=== PATIENT | female | born 1935 | race Caucasian/White ===

== ENCOUNTER 2017-11-22 21:25 | Inpatient (IN) | payer MEDICAID, OTHER ==
[2017-11-22 23:16] LABS: ADD MAN DIFF? NO; HAAIG REFLEX REFLEX FILED
[2017-11-22 23:19] LABS: BASOPHIL # 0.1 10^3/ul (0.0-0.1); BASOPHILS % 0.6 % (0.0-2.0); EOSINOPHILS # 0.2 10^3/ul (0.0-0.5); EOSINOPHILS % 2.3 % (0.0-7.0); HEMATOCRIT 39.3 % (37.0-47.0); HEMOGLOBIN 13.5 g/dl (12.0-16.0); LYMPHOCYTES # 1.2 10^3/ul (0.8-2.9); LYMPHOCYTES % 14.8 % (15.0-51.0); MEAN CORPUSCULAR HGB CONC 34.4 g/dl (32.0-37.0); MEAN CORPUSCULAR VOLUME 90.1 fl (82.0-101.0); MEAN PLATELET VOLUME 10.9 fl (7.4-10.4); MONOCYTE # 0.7 10^3/ul (0.3-0.9); MONOCYTES % 8.2 % (0.0-11.0); NEUTROPHIL # 6.2 10^3/ul (1.6-7.5); NEUTROPHILS % 73.4 % (39.0-77.0); PLATELET COUNT 209 10^3/UL (140-415); RED BLOOD COUNT 4.36 10^6/ul (4.20-5.40); RED CELL DISTRIBUTION WIDTH 18.6 % (11.5-14.5)
[2017-11-22 23:19] LABS: WHITE BLOOD COUNT 8.4 10^3/ul (4.8-10.8)
[2017-11-22 23:39] LABS: INR 1.28; PROTIME 16.2 Sec (11.9-14.9); PT RATIO 1.3
[2017-11-22 23:40] LABS: PARTIAL THROMBOPLASTIN TIME 44.4 Sec (25.0-35.0)
[2017-11-23 00:13] LABS: ADD UMIC YES; UR ASCORBIC ACID 20 mg/dL (NEGATIVE); UR BACTERIA FEW /HPF (NONE SEEN); UR BILIRUBIN (Dip) 2+ mg/dL (NEGATIVE); UR BLOOD (Dip) NEGATIVE (NEGATIVE); UR CLARITY SLIGHTLY CLOUDY (CLEAR); UR COLOR AMBER (YELLOW); UR GLUCOSE (Dip) 1+ mg/dL (NEGATIVE); UR KETONES (Dip) NEGATIVE (NEGATIVE); UR LEUKOCYTE ESTERASE (Dip) 1+ Leu/ul (NEGATIVE); UR MUCUS FEW /HPF (NONE SEEN); UR NITRITE (Dip) NEGATIVE (NEGATIVE); UR RBC 2 /HPF (0-5); UR SPECIFIC GRAVITY (Dip) 1.018 (1.003-1.030); UR SQUAMOUS EPITHELIAL CELL MODERATE /HPF (FEW); UR TOTAL PROTEIN (Dip) NEGATIVE (NEGATIVE); UR TRANSITIONAL EPI CELL FEW /HPF (NONE SEEN); UR UROBILINOGEN (Dip) 2+ mg/dL (NEGATIVE); UR WBC 29 /HPF (0-5)
[2017-11-23 00:41] LABS: AMPHETAMINE/METHAMPHETAMINE NEGATIVE (NEGATIVE); BARBITURATES NEGATIVE (NEGATIVE); BENZODIAZEPINES NEGATIVE (NEGATIVE); CANNABINOIDS NEGATIVE (NEGATIVE); COCAINE NEGATIVE (NEGATIVE); OPIATES NEGATIVE (NEGATIVE)
[2017-11-23 00:46] LABS: ALANINE AMINOTRANSFERASE 50 IU/L (13-69); ALBUMIN 3.1 g/dl (3.3-4.9); ALBUMIN/GLOBULIN RATIO 0.65; ALKALINE PHOSPHATASE 336 IU/L (42-121); ANION GAP 14 (8-16); ASPARTATE AMINO TRANSFERASE 122 IU/L (15-46); BILIRUBIN,INDIRECT 3.3 mg/dl (0-1.1); BLOOD UREA NITROGEN 15 mg/dl (7-20); CALCIUM 9.3 mg/dl (8.4-10.2); CARBON DIOXIDE 21 mmol/L (21-31); CHLORIDE 108 mmol/L (97-110); CREATININE 0.55 mg/dl (0.44-1.00); GLUCOSE 156 mg/dl (70-220); LIPASE 141 U/L (23-300); POTASSIUM 4.3 mmol/L (3.5-5.1); SODIUM 139 mmol/L (135-144); TOTAL PROTEIN 7.8 g/dl (6.1-8.1)
[2017-11-23 00:54] LABS: ETHANOL < 10.0 mg/dl
[2017-11-23 00:57] LABS: ACETAMINOPHEN < 10.0 ug/ml (10.0-30.0)
[2017-11-23 00:57] LABS: BILIRUBIN,TOTAL 21.9 mg/dl (0.2-1.3)
[2017-11-23 01:19] LABS: HEPATITIS B SURFACE ANTIGEN NEGATIVE (NEGATIVE)
[2017-11-23 01:36] LABS: HEPATITIS B CORE ANTIBODY REACTIVE (NEGATIVE); HEPATITIS C VIRAL ANTIBODY NEGATIVE (NEGATIVE)
[2017-11-23] MEDS ORDERED: NACL 0.9% 3 ML SYG IV (03:00)
[2017-11-23] MEDS ORDERED: ACETAMINOPHEN 325 MG TAB PO (03:00)
[2017-11-23] MEDS: CEFTRIAXONE 1 GM/50 ML (PMX) 50 ML IVPB (04:00)
[2017-11-23] MEDS: SOD CHLORIDE 0.9% 1,000 ML IV ×2 (04:00→22:54)
[2017-11-23 05:49] LABS: HAAIG REFLEX REFLEX FILED
[2017-11-23 05:53] LABS: RETICULOCYTE COUNT # 0.127 X10^6 (0.020-0.110); RETICULOCYTE COUNT % 3.3 % (0.5-1.5)
[2017-11-23 05:53] LABS: RETICULOCYTE RBC 3.81
[2017-11-23 06:21] LABS: AMMONIA 55 umol/l (9-30)
[2017-11-23 06:25] LABS: IRON 160 ug/dl (35-150)
[2017-11-23 06:29] LABS: MAGNESIUM 1.9 mg/dl (1.7-2.5)
[2017-11-23 06:35] LABS: % IRON SATURATION 59 % SAT (22-52); TOTAL IRON BINDING CAPACITY 271 ug/dl (241-421)
[2017-11-23 06:56] LABS: THYROID STIMULATING HORMONE 0.158 MIU/L (0.465-4.680)
[2017-11-23 06:57] LABS: HEPATITIS B SURFACE ANTIGEN NEGATIVE (NEGATIVE)
[2017-11-23 06:59] LABS: HEPATITIS B SURFACE ANTIGEN NEGATIVE (NEGATIVE)
[2017-11-23 07:06] LABS: ALPHA FETOPROTEIN 2.72 IU/L (0.00-7.21)
[2017-11-23 07:08] LABS: HIV 1&2 ANTIBODY NEGATIVE (NEGATIVE)
[2017-11-23 07:15] LABS: HEPATITIS B CORE ANTIBODY REACTIVE (NEGATIVE); HEPATITIS C VIRAL ANTIBODY NEGATIVE (NEGATIVE)
[2017-11-23 07:30] LABS: HEMOGLOBIN A1C 5.1 % (0-5.9)
[2017-11-23 07:48] LABS: HEPATITIS C VIRAL ANTIBODY NEGATIVE (NEGATIVE)
[2017-11-23 07:57] LABS: LACTATE DEHYDROGENASE 583 IU/L (313-618)
[2017-11-23 17:18] LABS: HEPATITIS B SURFACE ANTIBODY NEGATIVE (NEGATIVE)
[2017-11-24] MEDS: CEFTRIAXONE 1 GM/50 ML (PMX) 50 ML IVPB (02:42)
[2017-11-24 05:15] LABS: ADD MAN DIFF? NO
[2017-11-24 05:20] LABS: WHITE BLOOD COUNT 8.2 10^3/ul (4.8-10.8)
[2017-11-24 05:20] LABS: BASOPHILS % 0.2 % (0.0-2.0); EOSINOPHILS % 0.5 % (0.0-7.0); HEMATOCRIT 32.2 % (37.0-47.0); HEMOGLOBIN 11.5 g/dl (12.0-16.0); LYMPHOCYTES # 1.2 10^3/ul (0.8-2.9); LYMPHOCYTES % 14.8 % (15.0-51.0); MEAN CORPUSCULAR HEMOGLOBIN 31.5 pg (29.0-33.0); MEAN CORPUSCULAR HGB CONC 35.7 g/dl (32.0-37.0); MEAN CORPUSCULAR VOLUME 88.2 fl (82.0-101.0); MEAN PLATELET VOLUME 10.7 fl (7.4-10.4); MONOCYTE # 0.7 10^3/ul (0.3-0.9); MONOCYTES % 8.9 % (0.0-11.0); NEUTROPHIL # 6.2 10^3/ul (1.6-7.5); NEUTROPHILS % 75.1 % (39.0-77.0); PLATELET COUNT 217 10^3/UL (140-415); RED BLOOD COUNT 3.65 10^6/ul (4.20-5.40); RED CELL DISTRIBUTION WIDTH 18.7 % (11.5-14.5)
[2017-11-24 05:52] LABS: ALANINE AMINOTRANSFERASE 43 IU/L (13-69); ALBUMIN 2.6 g/dl (3.3-4.9); ALBUMIN/GLOBULIN RATIO 0.61; ALKALINE PHOSPHATASE 271 IU/L (42-121); ANION GAP 15 (8-16); ASPARTATE AMINO TRANSFERASE 116 IU/L (15-46); BILIRUBIN,INDIRECT 2.3 mg/dl (0-1.1); BLOOD UREA NITROGEN 21 mg/dl (7-20); CALCIUM 8.6 mg/dl (8.4-10.2); CARBON DIOXIDE 21 mmol/L (21-31); CHLORIDE 110 mmol/L (97-110); CREATININE 0.73 mg/dl (0.44-1.00); GLUCOSE 61 mg/dl (70-220); POTASSIUM 4.5 mmol/L (3.5-5.1); SODIUM 141 mmol/L (135-144); TOTAL PROTEIN 6.8 g/dl (6.1-8.1)
[2017-11-24 06:18] LABS: CARCINOEMBRYONIC ANTIGEN 14.7 ng/ml (0.0-5.0)
[2017-11-24] MEDS: METOCLOPRAMIDE 10 MG INJ IV (10:11)
[2017-11-24] MEDS: SOD CHLORIDE 0.9% 1,000 ML IV (10:21)
[2017-11-24 11:26] LABS: MITOCHONDRIAL TB NEGATIVE (NEGATIVE); SMOOTH MUSCLE AB SCREEN NEGATIVE (NEGATIVE)
[2017-11-24 12:58] LABS: ANA SCREEN NEGATIVE (NEGATIVE)
[2017-11-24 14:27] LABS: ALPHA 1 ANTITRYPSIN 218 mg/dL (83-199); CERULOPLASMIN 42 mg/dL (18-53)
[2017-11-24] MEDS: BARIUM SULFATE 0.1% 450 ML BTL (VOLUMEN) PO ×2 (15:00→15:25)
[2017-11-24 15:16] LABS: HAPTOGLOBIN <15 mg/dL (43-212)
[2017-11-24] MEDS: SOD CHLORIDE 0.9% 100 ML (15:50)
[2017-11-24] MEDS: IOHEXOL 100 ML (15:50)
[2017-11-24 17:17] LABS: PROTIME 18.4 Sec (11.9-14.9); PT RATIO 1.4
[2017-11-25] MEDS: CEFTRIAXONE 1 GM/50 ML (PMX) 50 ML IVPB (03:32)
[2017-11-25 06:34] LABS: ADD MAN DIFF? NO
[2017-11-25 06:40] LABS: WHITE BLOOD COUNT 7.6 10^3/ul (4.8-10.8)
[2017-11-25 06:40] LABS: BASOPHIL # 0.1 10^3/ul (0.0-0.1); BASOPHILS % 0.8 % (0.0-2.0); EOSINOPHILS # 0.2 10^3/ul (0.0-0.5); HEMATOCRIT 29.4 % (37.0-47.0); HEMOGLOBIN 10.6 g/dl (12.0-16.0); LYMPHOCYTES # 1.4 10^3/ul (0.8-2.9); LYMPHOCYTES % 17.9 % (15.0-51.0); MEAN CORPUSCULAR HEMOGLOBIN 31.4 pg (29.0-33.0); MEAN CORPUSCULAR HGB CONC 36.1 g/dl (32.0-37.0); MEAN PLATELET VOLUME 10.7 fl (7.4-10.4); MONOCYTE # 0.9 10^3/ul (0.3-0.9); NEUTROPHILS % 65.6 % (39.0-77.0); PLATELET COUNT 200 10^3/UL (140-415); RED BLOOD COUNT 3.38 10^6/ul (4.20-5.40)
[2017-11-25 07:39] LABS: ALANINE AMINOTRANSFERASE 51 IU/L (13-69); ALBUMIN 2.5 g/dl (3.3-4.9); ALKALINE PHOSPHATASE 265 IU/L (42-121); ANION GAP 12 (8-16); ASPARTATE AMINO TRANSFERASE 127 IU/L (15-46); BILIRUBIN,INDIRECT 2.5 mg/dl (0-1.1); BILIRUBIN,TOTAL 17.3 mg/dl (0.2-1.3); BLOOD UREA NITROGEN 28 mg/dl (7-20); CALCIUM 8.2 mg/dl (8.4-10.2); CARBON DIOXIDE 20 mmol/L (21-31); CHLORIDE 109 mmol/L (97-110); CREATININE 0.82 mg/dl (0.44-1.00); GLUCOSE 95 mg/dl (70-220); POTASSIUM 3.6 mmol/L (3.5-5.1); SODIUM 137 mmol/L (135-144); TOTAL PROTEIN 6.6 g/dl (6.1-8.1)
[2017-11-25] MEDS: SOD CHLORIDE 0.9% 1,000 ML IV ×2 (14:54→18:37)
[2017-11-25] MEDS: ENOXAPARIN 60 MG/0.6 ML SYG SC ×2 (16:23→21:47)
[2017-11-26 05:19] LABS: ADD MAN DIFF? NO
[2017-11-26 05:22] LABS: BASOPHILS % 0.3 % (0.0-2.0); EOSINOPHILS # 0.2 10^3/ul (0.0-0.5); EOSINOPHILS % 2.8 % (0.0-7.0); HEMATOCRIT 30.2 % (37.0-47.0); HEMOGLOBIN 10.6 g/dl (12.0-16.0); LYMPHOCYTES # 1.1 10^3/ul (0.8-2.9); LYMPHOCYTES % 15.6 % (15.0-51.0); MEAN CORPUSCULAR HEMOGLOBIN 31.5 pg (29.0-33.0); MEAN CORPUSCULAR HGB CONC 35.1 g/dl (32.0-37.0); MEAN CORPUSCULAR VOLUME 89.9 fl (82.0-101.0); MEAN PLATELET VOLUME 10.6 fl (7.4-10.4); MONOCYTE # 0.6 10^3/ul (0.3-0.9); MONOCYTES % 8.7 % (0.0-11.0); NEUTROPHIL # 4.9 10^3/ul (1.6-7.5); NEUTROPHILS % 72.3 % (39.0-77.0); PLATELET COUNT 173 10^3/UL (140-415); RED BLOOD COUNT 3.36 10^6/ul (4.20-5.40); RED CELL DISTRIBUTION WIDTH 18.9 % (11.5-14.5)
[2017-11-26 05:22] LABS: WHITE BLOOD COUNT 6.8 10^3/ul (4.8-10.8)
[2017-11-26] MEDS: CEFTRIAXONE 1 GM/50 ML (PMX) 50 ML IVPB (05:27)
[2017-11-26 05:50] LABS: ALANINE AMINOTRANSFERASE 47 IU/L (13-69); ALBUMIN 2.3 g/dl (3.3-4.9); ALBUMIN/GLOBULIN RATIO 0.57; ALKALINE PHOSPHATASE 249 IU/L (42-121); ANION GAP 10 (8-16); ASPARTATE AMINO TRANSFERASE 115 IU/L (15-46); BILIRUBIN,INDIRECT 2.7 mg/dl (0-1.1); BILIRUBIN,TOTAL 16.3 mg/dl (0.2-1.3); BLOOD UREA NITROGEN 22 mg/dl (7-20); CALCIUM 7.9 mg/dl (8.4-10.2); CARBON DIOXIDE 19 mmol/L (21-31); CHLORIDE 112 mmol/L (97-110); CREATININE 0.62 mg/dl (0.44-1.00); GLUCOSE 141 mg/dl (70-220); POTASSIUM 3.3 mmol/L (3.5-5.1); SODIUM 138 mmol/L (135-144); TOTAL PROTEIN 6.3 g/dl (6.1-8.1)
[2017-11-26] MEDS: ENOXAPARIN 60 MG/0.6 ML SYG SC ×2 (08:33→21:48)
[2017-11-26] MEDS: POTASSIUM CHLORIDE (SR) 20 MEQ TAB PO (14:10)
[2017-11-26] MEDS: SOD CHLORIDE 0.9% 1,000 ML IV (16:01)
[2017-11-27] MEDS: CEFTRIAXONE 1 GM/50 ML (PMX) 50 ML IVPB (04:44)
[2017-11-27 05:30] LABS: ADD MAN DIFF? NO
[2017-11-27 05:35] LABS: BASOPHILS % 0.6 % (0.0-2.0); EOSINOPHILS # 0.2 10^3/ul (0.0-0.5); EOSINOPHILS % 2.8 % (0.0-7.0); HEMATOCRIT 30.6 % (37.0-47.0); HEMOGLOBIN 10.8 g/dl (12.0-16.0); LYMPHOCYTES # 1.2 10^3/ul (0.8-2.9); LYMPHOCYTES % 17.7 % (15.0-51.0); MEAN CORPUSCULAR HEMOGLOBIN 31.7 pg (29.0-33.0); MEAN CORPUSCULAR HGB CONC 35.3 g/dl (32.0-37.0); MEAN CORPUSCULAR VOLUME 89.7 fl (82.0-101.0); MEAN PLATELET VOLUME 10.8 fl (7.4-10.4); MONOCYTE # 0.6 10^3/ul (0.3-0.9); MONOCYTES % 8.9 % (0.0-11.0); NEUTROPHIL # 4.7 10^3/ul (1.6-7.5); NEUTROPHILS % 69.3 % (39.0-77.0); PLATELET COUNT 169 10^3/UL (140-415); RED BLOOD COUNT 3.41 10^6/ul (4.20-5.40); RED CELL DISTRIBUTION WIDTH 19.3 % (11.5-14.5)
[2017-11-27 05:35] LABS: WHITE BLOOD COUNT 6.7 10^3/ul (4.8-10.8)
[2017-11-27 05:54] LABS: ALANINE AMINOTRANSFERASE 52 IU/L (13-69); ALBUMIN 2.3 g/dl (3.3-4.9); ALBUMIN/GLOBULIN RATIO 0.56; ALKALINE PHOSPHATASE 274 IU/L (42-121); ANION GAP 9 (8-16); ASPARTATE AMINO TRANSFERASE 107 IU/L (15-46); BILIRUBIN,INDIRECT 3.2 mg/dl (0-1.1); BILIRUBIN,TOTAL 18.4 mg/dl (0.2-1.3); BLOOD UREA NITROGEN 15 mg/dl (7-20); CALCIUM 8.1 mg/dl (8.4-10.2); CARBON DIOXIDE 20 mmol/L (21-31); CHLORIDE 116 mmol/L (97-110); CREATININE 0.54 mg/dl (0.44-1.00); GLUCOSE 85 mg/dl (70-220); POTASSIUM 3.8 mmol/L (3.5-5.1); SODIUM 141 mmol/L (135-144); TOTAL PROTEIN 6.4 g/dl (6.1-8.1)
[2017-11-27 06:02] LABS: INR 1.63; PROTIME 19.7 Sec (11.9-14.9); PT RATIO 1.5
[2017-11-27 06:04] LABS: PARTIAL THROMBOPLASTIN TIME 63.6 Sec (25.0-35.0)
[2017-11-27] MEDS: SOD CHLORIDE 0.9% 1,000 ML IV ×2 (06:54→14:31)
[2017-11-27] MEDS: ENOXAPARIN 40 MG/0.4 ML SYG SC (09:32)
[2017-11-28] MEDS: CEFTRIAXONE 1 GM/50 ML (PMX) 50 ML IVPB (03:00)
[2017-11-28 05:46] LABS: ADD MAN DIFF? NO
[2017-11-28 06:06] LABS: WHITE BLOOD COUNT 7.1 10^3/ul (4.8-10.8)
[2017-11-28 06:06] LABS: BASOPHILS % 0.6 % (0.0-2.0); EOSINOPHILS # 0.3 10^3/ul (0.0-0.5); EOSINOPHILS % 3.5 % (0.0-7.0); HEMATOCRIT 31.1 % (37.0-47.0); LYMPHOCYTES # 1.2 10^3/ul (0.8-2.9); LYMPHOCYTES % 16.4 % (15.0-51.0); MEAN CORPUSCULAR HEMOGLOBIN 31.3 pg (29.0-33.0); MEAN CORPUSCULAR HGB CONC 35.4 g/dl (32.0-37.0); MEAN CORPUSCULAR VOLUME 88.6 fl (82.0-101.0); MEAN PLATELET VOLUME 11.1 fl (7.4-10.4); MONOCYTE # 0.7 10^3/ul (0.3-0.9); MONOCYTES % 9.5 % (0.0-11.0); NEUTROPHIL # 4.9 10^3/ul (1.6-7.5); NEUTROPHILS % 69.4 % (39.0-77.0); PLATELET COUNT 182 10^3/UL (140-415); RED BLOOD COUNT 3.51 10^6/ul (4.20-5.40); RED CELL DISTRIBUTION WIDTH 19.2 % (11.5-14.5)
[2017-11-28 06:09] LABS: INR 1.73; PROTIME 20.6 Sec (11.9-14.9); PT RATIO 1.6
[2017-11-28 06:10] LABS: PARTIAL THROMBOPLASTIN TIME 54.8 Sec (25.0-35.0)
[2017-11-28 06:32] LABS: MAGNESIUM 1.8 mg/dl (1.7-2.5)
[2017-11-28 06:37] LABS: ALANINE AMINOTRANSFERASE 45 IU/L (13-69); ALBUMIN 2.3 g/dl (3.3-4.9); ALBUMIN/GLOBULIN RATIO 0.54; ALKALINE PHOSPHATASE 296 IU/L (42-121); ANION GAP 11 (8-16); ASPARTATE AMINO TRANSFERASE 109 IU/L (15-46); BILIRUBIN,INDIRECT 3.1 mg/dl (0-1.1); BILIRUBIN,TOTAL 18.1 mg/dl (0.2-1.3); BLOOD UREA NITROGEN 12 mg/dl (7-20); CALCIUM 8.1 mg/dl (8.4-10.2); CARBON DIOXIDE 19 mmol/L (21-31); CHLORIDE 116 mmol/L (97-110); CREATININE 0.58 mg/dl (0.44-1.00); GLUCOSE 86 mg/dl (70-220); POTASSIUM 3.7 mmol/L (3.5-5.1); SODIUM 142 mmol/L (135-144); TOTAL PROTEIN 6.5 g/dl (6.1-8.1)
[2017-11-28] MEDS: ENOXAPARIN 40 MG/0.4 ML SYG SC ×3 (09:00→20:12)
[2017-11-28] MEDS: SOD CHLORIDE 0.9% 1,000 ML IV (11:39)
[2017-11-28] MEDS ORDERED: ONDANSETRON 4 MG INJ IV (12:30)
[2017-11-29] MEDS: SOD CHLORIDE 0.9% 250 ML IV* (00:03)
[2017-11-29] MEDS ORDERED: PANTOPRAZOLE 40 MG INJ (04:38)
[2017-11-29] MEDS: PANTOPRAZOLE 40 MG INJ IV (04:40)
[2017-11-29] MEDS: CEFTRIAXONE 1 GM/50 ML (PMX) 50 ML IVPB (04:40)
[2017-11-29 06:29] LABS: ADD MAN DIFF? NO
[2017-11-29 06:34] LABS: BASOPHILS % 0.5 % (0.0-2.0); EOSINOPHILS # 0.2 10^3/ul (0.0-0.5); EOSINOPHILS % 4.1 % (0.0-7.0); HEMATOCRIT 28.2 % (37.0-47.0); LYMPHOCYTES % 17.5 % (15.0-51.0); MEAN CORPUSCULAR HEMOGLOBIN 32.2 pg (29.0-33.0); MEAN CORPUSCULAR HGB CONC 35.5 g/dl (32.0-37.0); MEAN CORPUSCULAR VOLUME 90.7 fl (82.0-101.0); MEAN PLATELET VOLUME 10.5 fl (7.4-10.4); MONOCYTE # 0.6 10^3/ul (0.3-0.9); MONOCYTES % 11.1 % (0.0-11.0); NEUTROPHIL # 3.8 10^3/ul (1.6-7.5); NEUTROPHILS % 66.3 % (39.0-77.0); PLATELET COUNT 149 10^3/UL (140-415); RED BLOOD COUNT 3.11 10^6/ul (4.20-5.40); RED CELL DISTRIBUTION WIDTH 19.3 % (11.5-14.5)
[2017-11-29 06:34] LABS: WHITE BLOOD COUNT 5.7 10^3/ul (4.8-10.8)
[2017-11-29 06:50] LABS: ALANINE AMINOTRANSFERASE 39 IU/L (13-69); ALBUMIN 2.5 g/dl (3.3-4.9); ALKALINE PHOSPHATASE 240 IU/L (42-121); ANION GAP 12 (8-16); ASPARTATE AMINO TRANSFERASE 76 IU/L (15-46); BILIRUBIN,INDIRECT 3.2 mg/dl (0-1.1); BILIRUBIN,TOTAL 19.1 mg/dl (0.2-1.3); BLOOD UREA NITROGEN 11 mg/dl (7-20); CALCIUM 8.4 mg/dl (8.4-10.2); CARBON DIOXIDE 22 mmol/L (21-31); CHLORIDE 111 mmol/L (97-110); CREATININE 0.69 mg/dl (0.44-1.00); GLUCOSE 84 mg/dl (70-220); POTASSIUM 3.8 mmol/L (3.5-5.1); SODIUM 141 mmol/L (135-144); TOTAL PROTEIN 6.4 g/dl (6.1-8.1)
[2017-11-29 06:55] LABS: INR 1.49; PROTIME 18.3 Sec (11.9-14.9); PT RATIO 1.4
[2017-11-29 17:04] LABS: INR 1.33; PROTIME 16.7 Sec (11.9-14.9); PT RATIO 1.3
[2017-11-29] MEDS: PHYTONADIONE 10 MG in DEXTROSE 5% 50 ML IVPB (18:11)
[2017-11-29] MEDS: SOD CHLORIDE 0.9% 1,000 ML IV (18:11)
[2017-11-30] MEDS: CEFTRIAXONE 1 GM/50 ML (PMX) 50 ML IVPB (04:26)
[2017-11-30] MEDS: PANTOPRAZOLE 40 MG INJ IV (06:09)
[2017-11-30 06:47] LABS: ADD MAN DIFF? NO
[2017-11-30 06:54] LABS: WHITE BLOOD COUNT 6.8 10^3/ul (4.8-10.8)
[2017-11-30 06:54] LABS: BASOPHILS % 0.6 % (0.0-2.0); EOSINOPHILS # 0.2 10^3/ul (0.0-0.5); EOSINOPHILS % 2.8 % (0.0-7.0); HEMATOCRIT 31.7 % (37.0-47.0); LYMPHOCYTES # 1.7 10^3/ul (0.8-2.9); LYMPHOCYTES % 24.6 % (15.0-51.0); MEAN CORPUSCULAR HEMOGLOBIN 31.5 pg (29.0-33.0); MEAN CORPUSCULAR HGB CONC 34.7 g/dl (32.0-37.0); MEAN CORPUSCULAR VOLUME 90.8 fl (82.0-101.0); MEAN PLATELET VOLUME 10.5 fl (7.4-10.4); MONOCYTE # 0.6 10^3/ul (0.3-0.9); NEUTROPHIL # 4.2 10^3/ul (1.6-7.5); NEUTROPHILS % 62.3 % (39.0-77.0); PLATELET COUNT 166 10^3/UL (140-415); RED BLOOD COUNT 3.49 10^6/ul (4.20-5.40); RED CELL DISTRIBUTION WIDTH 19.6 % (11.5-14.5)
[2017-11-30 07:16] LABS: ANION GAP 14 (8-16); BLOOD UREA NITROGEN 11 mg/dl (7-20); CALCIUM 8.7 mg/dl (8.4-10.2); CARBON DIOXIDE 18 mmol/L (21-31); CHLORIDE 113 mmol/L (97-110); GLUCOSE 80 mg/dl (70-220); POTASSIUM 3.5 mmol/L (3.5-5.1); SODIUM 141 mmol/L (135-144)
[2017-11-30 07:24] LABS: INR 1.24; PROTIME 15.8 Sec (11.9-14.9); PT RATIO 1.2
[2017-11-30 07:25] LABS: PARTIAL THROMBOPLASTIN TIME 41.7 Sec (25.0-35.0)
[2017-11-30] MEDS: PHYTONADIONE 10 MG in DEXTROSE 5% 50 ML IVPB (09:12)
[2017-11-30 12:26] LABS: TYPE AND SCREEN 1 1
[2017-11-30] MEDS: SOD CHLORIDE 0.9% 250 ML IV* (13:04)
[2017-11-30 14:47] LABS: INR 1.17; PROTIME 15.1 Sec (11.9-14.9); PT RATIO 1.2
[2017-11-30] MEDS: LIDOCAINE 1% (MDV) 10 ML INJ (14:57)
[2017-11-30] MEDS: SOD CHLORIDE 0.9% 1,000 ML IV (16:03)
[2017-11-30 16:40] LABS: ALANINE AMINOTRANSFERASE 34 IU/L (13-69); ALBUMIN 3.3 g/dl (3.3-4.9); ALKALINE PHOSPHATASE 234 IU/L (42-121); ASPARTATE AMINO TRANSFERASE 70 IU/L (15-46); BILIRUBIN,INDIRECT 3.4 mg/dl (0-1.1); BILIRUBIN,TOTAL 20.2 mg/dl (0.2-1.3); TOTAL PROTEIN 7.8 g/dl (6.1-8.1)
[2017-11-30] MEDS ORDERED: INDOMETHACIN 50 MG SUPP PR (17:30)
[2017-11-30] MEDS: ALBUTEROL/IPRATROPIUM (NEB) 3 ML AMP HHN (23:52)
[2017-12-01 05:39] LABS: ADD MAN DIFF? NO
[2017-12-01 05:46] LABS: BASOPHILS % 0.6 % (0.0-2.0); EOSINOPHILS # 0.2 10^3/ul (0.0-0.5); EOSINOPHILS % 4.1 % (0.0-7.0); HEMATOCRIT 27.8 % (37.0-47.0); HEMOGLOBIN 9.7 g/dl (12.0-16.0); LYMPHOCYTES # 0.8 10^3/ul (0.8-2.9); LYMPHOCYTES % 16.6 % (15.0-51.0); MEAN CORPUSCULAR HEMOGLOBIN 31.5 pg (29.0-33.0); MEAN CORPUSCULAR HGB CONC 34.9 g/dl (32.0-37.0); MEAN CORPUSCULAR VOLUME 90.3 fl (82.0-101.0); MEAN PLATELET VOLUME 10.4 fl (7.4-10.4); MONOCYTE # 0.6 10^3/ul (0.3-0.9); NEUTROPHIL # 3.2 10^3/ul (1.6-7.5); NEUTROPHILS % 65.3 % (39.0-77.0); PLATELET COUNT 138 10^3/UL (140-415); RED BLOOD COUNT 3.08 10^6/ul (4.20-5.40); RED CELL DISTRIBUTION WIDTH 19.6 % (11.5-14.5)
[2017-12-01 05:46] LABS: WHITE BLOOD COUNT 4.9 10^3/ul (4.8-10.8)
[2017-12-01 06:06] LABS: ANION GAP 13 (8-16); BLOOD UREA NITROGEN 12 mg/dl (7-20); CALCIUM 8.3 mg/dl (8.4-10.2); CARBON DIOXIDE 19 mmol/L (21-31); CHLORIDE 113 mmol/L (97-110); CREATININE 0.62 mg/dl (0.44-1.00); GLUCOSE 110 mg/dl (70-220); POTASSIUM 3.3 mmol/L (3.5-5.1); SODIUM 142 mmol/L (135-144)
[2017-12-01] MEDS: PANTOPRAZOLE 40 MG INJ IV (06:07)
[2017-12-01 06:12] LABS: INR 1.32; PROTIME 16.6 Sec (11.9-14.9); PT RATIO 1.3
[2017-12-01 06:13] LABS: PARTIAL THROMBOPLASTIN TIME 39.4 Sec (25.0-35.0)
[2017-12-01] MEDS: PHYTONADIONE 10 MG in DEXTROSE 5% 50 ML IVPB (09:46)
[2017-12-01] MEDS: SOD CHLORIDE 0.9% 1,000 ML IV (10:54)
[2017-12-01] MEDS: SOD CHLORIDE 0.9% 250 ML IV* (14:52)
[2017-12-01 17:59] LABS: TYPE AND SCREEN 1 1
[2017-12-02] MEDS: PANTOPRAZOLE 40 MG INJ IV (05:22)
[2017-12-02] MEDS: FUROSEMIDE 20 MG INJ IV (05:22)
[2017-12-02 06:14] LABS: ADD MAN DIFF? NO
[2017-12-02 06:24] LABS: BASOPHILS % 0.6 % (0.0-2.0); EOSINOPHILS # 0.2 10^3/ul (0.0-0.5); EOSINOPHILS % 4.2 % (0.0-7.0); HEMATOCRIT 28.1 % (37.0-47.0); LYMPHOCYTES # 1.1 10^3/ul (0.8-2.9); LYMPHOCYTES % 20.7 % (15.0-51.0); MEAN CORPUSCULAR HEMOGLOBIN 32.3 pg (29.0-33.0); MEAN CORPUSCULAR HGB CONC 35.6 g/dl (32.0-37.0); MEAN CORPUSCULAR VOLUME 90.6 fl (82.0-101.0); MEAN PLATELET VOLUME 10.6 fl (7.4-10.4); MONOCYTE # 0.6 10^3/ul (0.3-0.9); MONOCYTES % 11.5 % (0.0-11.0); NEUTROPHIL # 3.3 10^3/ul (1.6-7.5); NEUTROPHILS % 62.4 % (39.0-77.0); PLATELET COUNT 131 10^3/UL (140-415); RED CELL DISTRIBUTION WIDTH 19.5 % (11.5-14.5)
[2017-12-02 06:24] LABS: WHITE BLOOD COUNT 5.2 10^3/ul (4.8-10.8)
[2017-12-02 06:43] LABS: ALANINE AMINOTRANSFERASE 25 IU/L (13-69); ALBUMIN 3.2 g/dl (3.3-4.9); ALKALINE PHOSPHATASE 241 IU/L (42-121); ASPARTATE AMINO TRANSFERASE 64 IU/L (15-46); BILIRUBIN,INDIRECT 4.5 mg/dl (0-1.1); BILIRUBIN,TOTAL 20.9 mg/dl (0.2-1.3); INR 1.26; PT RATIO 1.3; TOTAL PROTEIN 7.5 g/dl (6.1-8.1)
[2017-12-02 06:44] LABS: PARTIAL THROMBOPLASTIN TIME 43.4 Sec (25.0-35.0)
[2017-12-02 07:23] LABS: ANION GAP 17 (8-16); BLOOD UREA NITROGEN 9 mg/dl (7-20); CARBON DIOXIDE 20 mmol/L (21-31); CHLORIDE 114 mmol/L (97-110); CREATININE 0.61 mg/dl (0.44-1.00); GLUCOSE 93 mg/dl (70-220); POTASSIUM 3.4 mmol/L (3.5-5.1); SODIUM 148 mmol/L (135-144)
[2017-12-02] MEDS: INDOMETHACIN 50 MG SUPP PR (10:30)
[2017-12-02] MEDS: SOD CHLORIDE 0.9% 1,000 ML IV (11:00)
[2017-12-02] MEDS ORDERED: FENTAnyl 50 MCG/ML VIAL IV (11:30)
[2017-12-02] MEDS ORDERED: HYDROmorphONE (0.2 MG/ML) 10ML SYG IV ×2 (11:30)
[2017-12-02] MEDS ORDERED: MEPERIDINE 25 MG INJ IV (11:30)
[2017-12-02] MEDS ORDERED: PROCHLORPERAZINE 10 MG INJ IV (11:30)
[2017-12-02] MEDS ORDERED: DIPHENHYDRAMINE 50 MG INJ IV (11:30)
[2017-12-02] MEDS ORDERED: ONDANSETRON 4 MG INJ IV ×2 (11:30→18:30)
[2017-12-02] MEDS ORDERED: MIDAZOLAM 1 MG/ML 2 ML INJ (11:34)
[2017-12-02] MEDS ORDERED: LIDOCAINE 2% (SDV) 5 ML INJ (11:34)
[2017-12-02] MEDS ORDERED: SUCCINYLCHOLINE CHLORIDE 100 MG/5 ML SYG IV (11:34)
[2017-12-02] MEDS ORDERED: ETOMIDATE 20 MG INJ (11:34)
[2017-12-02] MEDS ORDERED: FENTAnyl 50 MCG/ML VIAL (11:37)
[2017-12-02] MEDS ORDERED: EPHEDrine SULFATE 50 MG/5 ML SYG (11:41)
[2017-12-02] MEDS ORDERED: ROCURONIUM 50 MG INJ (11:46)
[2017-12-02] MEDS ORDERED: PHENYLephrine (100 MCG/ML) 5ML SYG (11:47)
[2017-12-02] MEDS ORDERED: ONDANSETRON INJ 8 MG in SOD CHLORIDE 0.9% 50 ML IV (16:30)
[2017-12-03] MEDS: PANTOPRAZOLE 40 MG INJ IV (06:17)
[2017-12-03] MEDS: SOD CHLORIDE 0.9% 1,000 ML IV (06:19)
[2017-12-03 06:23] LABS: ADD MAN DIFF? NO
[2017-12-03 06:29] LABS: WHITE BLOOD COUNT 7.5 10^3/ul (4.8-10.8)
[2017-12-03 06:29] LABS: BASOPHILS % 0.4 % (0.0-2.0); EOSINOPHILS # 0.1 10^3/ul (0.0-0.5); EOSINOPHILS % 1.6 % (0.0-7.0); HEMATOCRIT 24.9 % (37.0-47.0); HEMOGLOBIN 8.7 g/dl (12.0-16.0); LYMPHOCYTES # 1.1 10^3/ul (0.8-2.9); LYMPHOCYTES % 14.1 % (15.0-51.0); MEAN CORPUSCULAR HEMOGLOBIN 32.8 pg (29.0-33.0); MEAN CORPUSCULAR HGB CONC 34.9 g/dl (32.0-37.0); MEAN PLATELET VOLUME 10.7 fl (7.4-10.4); MONOCYTES % 13.3 % (0.0-11.0); NEUTROPHIL # 5.2 10^3/ul (1.6-7.5); NEUTROPHILS % 70.1 % (39.0-77.0); PLATELET COUNT 133 10^3/UL (140-415); RED BLOOD COUNT 2.65 10^6/ul (4.20-5.40); RED CELL DISTRIBUTION WIDTH 19.7 % (11.5-14.5)
[2017-12-03 06:40] LABS: POSITIVE DIFF @See below
[2017-12-03 06:47] LABS: INR 1.61; PT RATIO 1.5
[2017-12-03 06:48] LABS: PARTIAL THROMBOPLASTIN TIME 38.5 Sec (25.0-35.0)
[2017-12-03 06:55] LABS: ANION GAP 15 (8-16); BLOOD UREA NITROGEN 12 mg/dl (7-20); CALCIUM 8.4 mg/dl (8.4-10.2); CARBON DIOXIDE 21 mmol/L (21-31); CHLORIDE 113 mmol/L (97-110); CREATININE 0.95 mg/dl (0.44-1.00); GLUCOSE 101 mg/dl (70-220); SODIUM 145 mmol/L (135-144)
[2017-12-03 07:01] LABS: PROTIME 19.5 Sec (11.9-14.9)
[2017-12-03] MEDS: MAGNESIUM HYDROXIDE 30ML CUP PO (21:26)
[2017-12-03] MEDS: ENOXAPARIN 40 MG/0.4 ML SYG SC (21:32)
[2017-12-04] MEDS: SOD CHLORIDE 0.9% 1,000 ML IV ×2 (01:23→20:06)
[2017-12-04] MEDS: PANTOPRAZOLE 40 MG INJ IV (05:44)
[2017-12-04 06:49] LABS: INR 1.75; PROTIME 20.8 Sec (11.9-14.9); PT RATIO 1.6
[2017-12-04 06:50] LABS: PARTIAL THROMBOPLASTIN TIME 48.3 Sec (25.0-35.0)
[2017-12-04] MEDS: ENOXAPARIN 40 MG/0.4 ML SYG SC (08:23)
[2017-12-04] MEDS: SOD CHLORIDE 0.9% 250 ML IV* (12:57)
[2017-12-05 00:01] LABS: TYPE AND SCREEN 1 1
[2017-12-05 05:35] LABS: ADD MAN DIFF? NO
[2017-12-05 05:42] LABS: WHITE BLOOD COUNT 5.9 10^3/ul (4.8-10.8)
[2017-12-05 05:42] LABS: BASOPHILS % 0.3 % (0.0-2.0); EOSINOPHILS # 0.2 10^3/ul (0.0-0.5); EOSINOPHILS % 3.4 % (0.0-7.0); HEMATOCRIT 22.1 % (37.0-47.0); HEMOGLOBIN 7.7 g/dl (12.0-16.0); LYMPHOCYTES # 0.9 10^3/ul (0.8-2.9); LYMPHOCYTES % 15.3 % (15.0-51.0); MEAN CORPUSCULAR HEMOGLOBIN 32.2 pg (29.0-33.0); MEAN CORPUSCULAR HGB CONC 34.8 g/dl (32.0-37.0); MEAN CORPUSCULAR VOLUME 92.5 fl (82.0-101.0); MONOCYTE # 0.7 10^3/ul (0.3-0.9); MONOCYTES % 11.3 % (0.0-11.0); NEUTROPHIL # 4.1 10^3/ul (1.6-7.5); PLATELET COUNT 105 10^3/UL (140-415); RED BLOOD COUNT 2.39 10^6/ul (4.20-5.40); RED CELL DISTRIBUTION WIDTH 19.6 % (11.5-14.5)
[2017-12-05 06:02] LABS: ALANINE AMINOTRANSFERASE 68 IU/L (13-69); ALBUMIN/GLOBULIN RATIO 0.75; ALKALINE PHOSPHATASE 206 IU/L (42-121); ANION GAP 14 (8-16); ASPARTATE AMINO TRANSFERASE 139 IU/L (15-46); BILIRUBIN,INDIRECT 4.8 mg/dl (0-1.1); BILIRUBIN,TOTAL 21.9 mg/dl (0.2-1.3); BLOOD UREA NITROGEN 17 mg/dl (7-20); CALCIUM 8.4 mg/dl (8.4-10.2); CARBON DIOXIDE 23 mmol/L (21-31); CHLORIDE 111 mmol/L (97-110); CREATININE 1.28 mg/dl (0.44-1.00); GLUCOSE 100 mg/dl (70-220); POTASSIUM 4.4 mmol/L (3.5-5.1); SODIUM 144 mmol/L (135-144)
[2017-12-05 06:09] LABS: INR 1.49; PROTIME 18.3 Sec (11.9-14.9); PT RATIO 1.4
[2017-12-05] MEDS: PANTOPRAZOLE 40 MG INJ IV (06:10)
[2017-12-05 15:15] LABS: INR 1.51; PROTIME 18.5 Sec (11.9-14.9); PT RATIO 1.4
[2017-12-05] MEDS: ALBUTEROL/IPRATROPIUM (NEB) 3 ML AMP HHN (16:53)
[2017-12-05 19:16] LABS: FREE T4 (FREE THYROXINE) 3.18 ng/dl (0.85-1.93)
[2017-12-05 19:17] LABS: T4 (THYROXINE) 10.8 ug/dl (5.5-11.0)
[2017-12-06] MEDS ORDERED: WARFARIN 5 MG TAB PO (17:00)
[2017-12-06] MEDS ORDERED: RIVAROXABAN 15 MG TABLET PO (18:05)
[2017-12-06] MEDS: ENOXAPARIN 60 MG/0.6 ML SYG SC (20:49)
[2017-12-06] MEDS ORDERED: ENOXAPARIN 100 MG/ML SYG SC (21:00)
[2017-12-07] MEDS: LIDOCAINE 1% (MDV) 10 ML INJ (09:40)
[2017-12-07 09:45] LABS: ALANINE AMINOTRANSFERASE 44 IU/L (13-69); ALBUMIN/GLOBULIN RATIO 0.68; ALKALINE PHOSPHATASE 253 IU/L (42-121); ANION GAP 17 (8-16); ASPARTATE AMINO TRANSFERASE 86 IU/L (15-46); BILIRUBIN,INDIRECT 4.8 mg/dl (0-1.1); BILIRUBIN,TOTAL 25.2 mg/dl (0.2-1.3); BLOOD UREA NITROGEN 20 mg/dl (7-20); CALCIUM 8.8 mg/dl (8.4-10.2); CARBON DIOXIDE 22 mmol/L (21-31); CHLORIDE 110 mmol/L (97-110); CREATININE 1.08 mg/dl (0.44-1.00); GLUCOSE 83 mg/dl (70-220); MAGNESIUM 1.7 mg/dl (1.7-2.5); PHOSPHORUS 3.6 mg/dl (2.5-4.9); POTASSIUM 4.8 mmol/L (3.5-5.1); SODIUM 144 mmol/L (135-144); TOTAL PROTEIN 7.4 g/dl (6.1-8.1)
[2017-12-07 10:14] LABS: FLD MN% 53.1 %; FLD PMN% 46.9 %; FLD RBC 198000 /uL; FLD WBC 260 /cmm
[2017-12-07 10:32] LABS: FLUID TOTAL PROTEIN < 2.0 g/dl
[2017-12-07 11:12] LABS: FLD CLARITY BLOODY; FLD COLOR RED
[2017-12-07 11:12] LABS: FLD TYPE PARACENTHESIS
[2017-12-07] MEDS: SPIRONOLACTONE 25 MG TAB PO (14:43)
[2017-12-07 16:28] LABS: INR 1.58; PROTIME 19.2 Sec (11.9-14.9); PT RATIO 1.5
[2017-12-07] MEDS: ENOXAPARIN 60 MG/0.6 ML SYG SC (20:56)
[2017-12-08 06:15] LABS: AMMONIA 93 umol/l (9-30)
[2017-12-08 06:21] LABS: INR 1.62; PROTIME 19.6 Sec (11.9-14.9); PT RATIO 1.5
[2017-12-08 06:22] LABS: ALANINE AMINOTRANSFERASE 42 IU/L (13-69); ALBUMIN 2.4 g/dl (3.3-4.9); ALKALINE PHOSPHATASE 236 IU/L (42-121); ANION GAP 13 (8-16); ASPARTATE AMINO TRANSFERASE 74 IU/L (15-46); BILIRUBIN,INDIRECT 3.9 mg/dl (0-1.1); BILIRUBIN,TOTAL 22.1 mg/dl (0.2-1.3); BLOOD UREA NITROGEN 23 mg/dl (7-20); CALCIUM 8.8 mg/dl (8.4-10.2); CARBON DIOXIDE 24 mmol/L (21-31); CHLORIDE 112 mmol/L (97-110); CREATININE 1.09 mg/dl (0.44-1.00); GLUCOSE 76 mg/dl (70-220); POTASSIUM 4.7 mmol/L (3.5-5.1); SODIUM 144 mmol/L (135-144); TOTAL PROTEIN 6.4 g/dl (6.1-8.1)
[2017-12-08] MEDS: LACTULOSE 30ML CUP PO ×2 (06:51→12:22)
[2017-12-08] MEDS: SPIRONOLACTONE 25 MG TAB PO (09:15)
[2017-12-08] MEDS: ENOXAPARIN 60 MG/0.6 ML SYG SC (09:15)
[2017-12-08 12:33] LABS: ADD MAN DIFF? NO
[2017-12-08 12:36] LABS: BASOPHILS % 0.2 % (0.0-2.0); EOSINOPHILS # 0.1 10^3/ul (0.0-0.5); HEMATOCRIT 26.8 % (37.0-47.0); HEMOGLOBIN 9.1 g/dl (12.0-16.0); LYMPHOCYTES # 1.1 10^3/ul (0.8-2.9); LYMPHOCYTES % 13.5 % (15.0-51.0); MEAN CORPUSCULAR HEMOGLOBIN 31.6 pg (29.0-33.0); MEAN CORPUSCULAR VOLUME 93.1 fl (82.0-101.0); MONOCYTES % 11.4 % (0.0-11.0); NEUTROPHIL # 6.1 10^3/ul (1.6-7.5); NEUTROPHILS % 73.2 % (39.0-77.0); PLATELET COUNT 145 10^3/UL (140-415); RED BLOOD COUNT 2.88 10^6/ul (4.20-5.40); RED CELL DISTRIBUTION WIDTH 20.7 % (11.5-14.5)
[2017-12-08 12:36] LABS: WHITE BLOOD COUNT 8.3 10^3/ul (4.8-10.8)
== END 2017-12-08 14:57 | disposition left against medical advice (07) | DRG 435 ==
LOC: PP2 23:55 → E/R 21:25
PROC: 0DB68ZX Excision of Stomach, Via Natural or Artificial Opening Endoscopic, Diagnostic (ICD-10-PCS; 2017-12-02 11:00)
PROC: 0F798DZ Dilation of Common Bile Duct with Intraluminal Device, Via Natural or Artificial Opening Endoscopic (ICD-10-PCS; 2017-12-02 11:00)
PROC: 0W9G3ZZ Drainage of Peritoneal Cavity, Percutaneous Approach (ICD-10-PCS; principal; 2017-12-02 11:32)
DX: C25.9 Malignant neoplasm of pancreas, unspecified (principal); K83.1 Obstruction of bile duct; I81 Portal vein thrombosis; R18.8 Other ascites; I85.00 Esophageal varices without bleeding; D68.9 Coagulation defect, unspecified; H26.9 Unspecified cataract; I10 Essential (primary) hypertension; Z85.028 Personal history of other malignant neoplasm of stomach; K74.60 Unspecified cirrhosis of liver; Z90.3 Acquired absence of stomach [part of]; K25.9 Gastric ulcer, unspecified as acute or chronic, without hemorrhage or perforation
CPT/HCPCS: 36415; 36430; 71045; 74170; 74181; 76705; 80048; 80053; 80076; 80306; 80307; 81001; 82042; 82103; 82105; 82140; 82378; 82390; 82728; 83010; 83036; 83540; 83615; 83690; 83735; 84100; 84157; 84436; 84439; 84443; 85025; 85045; 85610; 85730; 86038; 86255; 86301; 86703; 86704; 86706; 86708; 86709; 86803; 86850; 86900; 86901; 87070; 87102; 87116; 87340; 87496; 88104; 88305; 88312; 89051; 93306; 94640; 94664; 99285-25; G0378